=== PATIENT | male | born 1985 | race Caucasian/White ===

== ENCOUNTER 2024-08-11 09:41 | Emergency (ER) | payer SELFPAY ==
[~2024-08-11] VITALS: Ht 180.3 cm; Wt 91.2 kg
[~2024-08-11 09:41] MED LIST: BACTRIM DS TAB1 EACH PO; NORCO 5-325 TA1 EACH PO; NORCO 7.5-3251 EACH PO
[2024-08-11] MEDS ORDERED: VENTOLIN HFA18 GM (09:55)
[2024-08-11] MEDS ORDERED: PREDNISONE20 MG PO (09:55)
[2024-08-11 10:48] VITALS: BP 143/79
== END 2024-08-11 10:48 | disposition home or self-care (01) ==
LOC: ED 09:41
DX: J10.1 Influenza due to other identified influenza virus with other respiratory manifestations (principal); R04.2 Hemoptysis; Z79.899 Other long term (current) drug therapy
CPT/HCPCS: 71045